=== PATIENT | female | born 1945 | race Caucasian/White ===

== ENCOUNTER 2024-04-24 18:08 | Inpatient (IN) | payer MEDICARE, BC ==
[~2024-04-24] VITALS: Ht 165.1 cm; Wt 74.8 kg
[2024-04-24 19:09] LABS: BASOPHILS # (AUTO) 0.1 K/uL (0.0-0.2); BASOPHILS % (AUTO) 0.4 % (0.0-2.0); EOSINOPHILS # (AUTO) 0.2 K/uL (0.0-0.7); HEMATOCRIT 36 % (33-45); MEAN CORPUSCULAR HEMOGLOBIN 30 PG (26.0-33.0); MEAN CORPUSCULAR HGB CONC 33 g/dl (31.0-36.0); MEAN CORPUSCULAR VOLUME 92 fL (82-100); MONOCYTES % (AUTO) 5.7 % (2.0-12.0); NEUTROPHILS # (AUTO) 13.5 K/uL (1.8-8.9); NEUTROPHILS % (AUTO) 75.9 % (43.0-81.0); PLATELET COUNT (AUTO) 247 K/uL (150-450); RED BLOOD CELL COUNT(AUTO) 3.95 MIL/uL (4.0-5.2); RED CELL DISTRIBUTION WIDTH 13.9 % (11.5-15.0); WHITE BLOOD COUNT (AUTO) 17.8 K/uL (4.3-11.0)
[2024-04-24] MEDS ORDERED: oxyCODONE/APAP (5/325 MG) 1 UDTAB TABLET ONE (19:09)
[2024-04-24] MEDS: oxyCODONE/APAP (5/325 MG) 1 UDTAB TABLET PO ONE (19:11)
[2024-04-24 19:23] LABS: INR 0.96 (0.91-1.10); PARTIAL THROMBOPLASTIN TIME 26.1 SEC (24.3-34.3); PROTHROMBIN TIME 9.9 SECS (9.2-11.1)
[2024-04-24 19:27] LABS: CALCIUM, SERUM 9.2 mg/dL (8.5-10.1); CARBON DIOXIDE 22 mmol/L (21-32); CHLORIDE 104 mmol/L (98-107); CREATININE 1.7 mg/dL (0.6-1.3); GLUCOSE 158 mg/dL (74-106); POTASSIUM 4.6 mmol/L (3.5-5.1); SODIUM SERUM 133 mmol/L (136-145); UREA NITROGEN, BLOOD 24 mg/dL (7-18)
[2024-04-24 19:32] LABS: ALANINE AMINOTRANSFERASE 32 U/L (12-78); ALBUMIN 3.3 g/dL (3.4-5.0); ALKALINE PHOSPHATASE 36 U/L (46-116); ASPARTATE AMINOTRANSFERASE 24 U/L (15-37); BILIRUBIN,DIRECT 0.1 mg/dL (0.0-0.2); BILIRUBIN,TOTAL 0.3 mg/dL (0.2-1.0); TOTAL PROTEIN, SERUM 6.5 g/dL (6.4-8.2)
[2024-04-24] MEDS ORDERED: MORPHINE SULFATE INJ 2 MG/ML DISP.SYRIN ONE ×2 (19:51→21:15)
[2024-04-24] MEDS ORDERED: IOHEXOL-300 100 ML VIAL IV ONE (19:54)
[2024-04-24] MEDS: MORPHINE SULFATE INJ 2 MG/ML DISP.SYRIN IV ONE ×2 (19:55→21:19)
[2024-04-24] MEDS ORDERED: ONDANSETRON HCL/PF 4 MG/2 ML VIAL IVP PRN (22:00)
[2024-04-24] MEDS ORDERED: ZOLPIDEM TARTRATE 5 MG TABLET PO PRN (22:00)
[2024-04-24] MEDS ORDERED: Z GUARD REMEDY 4 OZ OINT TP PRN (22:00)
[2024-04-24] MEDS ORDERED: IBUPROFEN 600 MG TABLET PO PRN (22:00)
[2024-04-24] MEDS ORDERED: MAGNESIUM HYDROXIDE 30 ML UDC PO PRN (22:00)
[2024-04-24] MEDS ORDERED: MAG HYDROX/AL HYDROX/SIMETH 30 ML UDC PO PRN (22:00)
[2024-04-24 22:30] VITALS: BP 75/50; TEMP 97.5; O2SAT 100
[2024-04-24] MEDS: IV NS 0.9% 1,000 ML IV ONE (22:55)
[2024-04-25] MEDS: MORPHINE SULFATE INJ 2 MG/ML DISP.SYRIN IV PRN (06:11)
[2024-04-25] MEDS: BLOOD SUGAR DIAGNOSTIC 1 EACH STRIP IN SCH (06:43)
[2024-04-25] MEDS: INSULIN REGULAR, HUMAN 100 UNIT/ML 3 ML VIAL SQ PRN (06:48)
[2024-04-25 07:00] VITALS: BP 97/72; TEMP 98.1; O2SAT 100
[2024-04-25 07:19] LABS: BASOPHILS % (AUTO) 0.1 % (0.0-2.0); EOSINOPHILS % (AUTO) 0.1 % (0.0-6.0); HEMATOCRIT 31 % (33-45); HEMOGLOBIN 10.2 g/dL (11.5-14.8); LYMPHOCYTES # (AUTO) 2.3 K/uL (0.8-4.8); LYMPHOCYTES % (AUTO) 12.7 % (20.0-44.0); MEAN CORPUSCULAR HEMOGLOBIN 31 PG (26.0-33.0); MEAN CORPUSCULAR HGB CONC 33 g/dl (31.0-36.0); MEAN CORPUSCULAR VOLUME 94 fL (82-100); MONOCYTES # (AUTO) 1.2 K/uL (0.1-1.30); MONOCYTES % (AUTO) 6.4 % (2.0-12.0); NEUTROPHILS # (AUTO) 14.9 K/uL (1.8-8.9); NEUTROPHILS % (AUTO) 80.7 % (43.0-81.0); PLATELET COUNT (AUTO) 207 K/uL (150-450); RED BLOOD CELL COUNT(AUTO) 3.26 MIL/uL (4.0-5.2); RED CELL DISTRIBUTION WIDTH 14.4 % (11.5-15.0); WHITE BLOOD COUNT (AUTO) 18.5 K/uL (4.3-11.0)
[2024-04-25 08:11] LABS: CALCIUM, SERUM 8.9 mg/dL (8.5-10.1); CARBON DIOXIDE 23 mmol/L (21-32); CHLORIDE 106 mmol/L (98-107); CREATININE 2.3 mg/dL (0.6-1.3); GLUCOSE 167 mg/dL (74-106); MAGNESIUM 2.8 mg/dL (1.8-2.4); PHOSPHORUS 3.6 mg/dL (2.5-4.9); POTASSIUM 4.6 mmol/L (3.5-5.1); SODIUM SERUM 137 mmol/L (136-145); UREA NITROGEN, BLOOD 30 mg/dL (7-18)
[2024-04-25] MEDS ORDERED: ASPI-1169 PO (08:28)
[2024-04-25] MEDS ORDERED: ALBU8.5H8 IH (08:28)
[2024-04-25] MEDS ORDERED: MONT10TA22 PO (08:28)
[2024-04-25] MEDS ORDERED: BREYNA IH (08:28)
[2024-04-25] MEDS ORDERED: ASCO100058 PO (08:28)
[2024-04-25] MEDS ORDERED: VALS320T16 PO (08:28)
[2024-04-25] MEDS ORDERED: CETI-90 PO (08:28)
[2024-04-25] MEDS ORDERED: MOME17SP BNOSTRILS (08:28)
[2024-04-25] MEDS ORDERED: OMEP20CA15 PO (08:28)
[2024-04-25] MEDS ORDERED: CYAN-24 PO (08:28)
[2024-04-25] MEDS ORDERED: DOCU-141 PO (08:28)
[2024-04-25] MEDS ORDERED: METF-441 PO (08:28)
[2024-04-25] MEDS ORDERED: TROS20TA3 PO (08:28)
[2024-04-25] MEDS ORDERED: UBID100C13 PO (08:28)
[2024-04-25] MEDS ORDERED: BUPR200T2 PO (08:28)
[2024-04-25] MEDS ORDERED: ROSU40TA PO (08:28)
[2024-04-25] MEDS ORDERED: FERR325T23 PO (08:28)
[2024-04-25] MEDS ORDERED: POLY17PO4 PO (08:28)
[2024-04-25] MEDS: PANTOPRAZOLE 40 MG VIAL IV SCH (08:45)
[2024-04-25] MEDS: FENTANYL PF 100MCG/2ML AMPUL IV ONE ×2 (09:30→11:29)
[2024-04-25] MEDS: IV NS 0.9% 1,000 ML IV ONE (10:00)
[2024-04-25 13:00] VITALS: BP 102/43; TEMP 97.9; O2SAT 100
[2024-04-25 13:36] VITALS: O2SAT 100
[2024-04-25 13:47] LABS: HEMOGLOBIN 9.6 g/dL (11.5-14.8)
[2024-04-25] MEDS: HYDROCODONE/APAP 10/325MG TABLET PO PRN (15:22)
[2024-04-25 16:58] LABS: CREATININE, URINE 170.3 MG/DL (30.0-125.0); URINE TOTAL PROTEIN 254.1 mg/dL (0-11.9)
[2024-04-25] MEDS: MOMETASONE FUROATE NASAL SUSP 17 GM BOTTLE SCH (16:59)
[2024-04-25 17:00] VITALS: BP 99/47; TEMP 98; O2SAT 100
[2024-04-25] MEDS: buPROPion SR 100 MG TABLET.ER PO SCH (17:00)
[2024-04-25 17:02] LABS: APPEARANCE,URINE SLIGHTLY CLOUDY (CLEAR); BILIRUBIN,URINE 1+ (NEGATIVE); BLOOD, URINE 2+ Ery/uL (NEGATIVE); COLOR,URINE YELLOW (YELLOW); KETONES,URINE TRACE mg/dL (NEGATIVE); LEUKOCYTE ESTERASE ,URINE 2+ (NEGATIVE); NITRITE, URINE NEGATIVE (NEGATIVE); PROTEIN,URINE 2+ mg/dl (NEGATIVE); UGLUCOSE NEGATIVE (NEGATIVE)
[2024-04-25 17:19] LABS: ADD URINE CULTURE YES; BACTERIA,URINE 3+ /HPF (None Seen); SQUAMOUS EPITHELIAL CELL,UR Few /HPF (None Seen); WBC,URINE TOO NUMEROUS TO COUN /HPF (0-3)
[2024-04-25 17:21] LABS: EOSINOPHIL,URINE None Seen
[2024-04-25 19:47] VITALS: O2SAT 100
[2024-04-25 20:00] VITALS: BP 95/56; TEMP 97.9; O2SAT 100
[2024-04-25 20:26] LABS: HEMOGLOBIN 8.6 g/dL (11.5-14.8)
[2024-04-25] MEDS: ATORVASTATIN 40 MG TABLET PO SCH (21:11)
[2024-04-25] MEDS: MONTELUKAST SODIUM (10MG) 10 MG TABLET PO SCH (21:11)
[2024-04-26] VITALS (7 sets, daily range): BP systolic 95–113; BP diastolic 50–80; TEMP 98.1–99.5; O2SAT 89–100
[2024-04-26 07:55] LABS: BASOPHILS % (AUTO) 0.1 % (0.0-2.0); EOSINOPHILS % (AUTO) 0.1 % (0.0-6.0); HEMATOCRIT 26 % (33-45); HEMOGLOBIN 8.6 g/dL (11.5-14.8); LYMPHOCYTES # (AUTO) 2.9 K/uL (0.8-4.8); LYMPHOCYTES % (AUTO) 14.5 % (20.0-44.0); MEAN CORPUSCULAR HEMOGLOBIN 31 PG (26.0-33.0); MEAN CORPUSCULAR HGB CONC 33 g/dl (31.0-36.0); MEAN CORPUSCULAR VOLUME 94 fL (82-100); MONOCYTES # (AUTO) 1.7 K/uL (0.1-1.30); MONOCYTES % (AUTO) 8.6 % (2.0-12.0); NEUTROPHILS # (AUTO) 15.5 K/uL (1.8-8.9); NEUTROPHILS % (AUTO) 76.7 % (43.0-81.0); PLATELET COUNT (AUTO) 197 K/uL (150-450); RED BLOOD CELL COUNT(AUTO) 2.76 MIL/uL (4.0-5.2); RED CELL DISTRIBUTION WIDTH 14.5 % (11.5-15.0); WHITE BLOOD COUNT (AUTO) 20.3 K/uL (4.3-11.0)
[2024-04-26 08:22] LABS: ALANINE AMINOTRANSFERASE 30 U/L (12-78); ALBUMIN 2.7 g/dL (3.4-5.0); ALKALINE PHOSPHATASE 31 U/L (46-116); ASPARTATE AMINOTRANSFERASE 23 U/L (15-37); BILIRUBIN,TOTAL 0.3 mg/dL (0.2-1.0); CALCIUM, SERUM 8.3 mg/dL (8.5-10.1); CARBON DIOXIDE 22 mmol/L (21-32); CHLORIDE 104 mmol/L (98-107); CREATININE 2.9 mg/dL (0.6-1.3); GLUCOSE 161 mg/dL (74-106); MAGNESIUM 2.9 mg/dL (1.8-2.4); PHOSPHORUS 4.1 mg/dL (2.5-4.9); POTASSIUM 4.6 mmol/L (3.5-5.1); SODIUM SERUM 137 mmol/L (136-145); UREA NITROGEN, BLOOD 41 mg/dL (7-18)
[2024-04-26 08:41] LABS: CREATINE KINASE, TOTAL 212 U/L (26-192)
[2024-04-26] MEDS: DOCUSATE SODIUM 100 MG CAPSULE PO SCH (08:54)
[2024-04-26] MEDS: cetrizine 10 MG TABLET PO SCH (08:54)
[2024-04-26] MEDS: ASCORBIC ACID 500 MG TABLET PO SCH (08:54)
[2024-04-26] MEDS: FERROUS SULFATE (325 MG) 325 MG/TAB TABLET PO SCH (08:54)
[2024-04-26] MEDS: PANTOPRAZOLE 40 MG TABLET.DR PO SCH (09:05)
[2024-04-26] MEDS: PREGABALIN 25 MG CAPSULE PO SCH (11:45)
[2024-04-26] MEDS: LIDOCAINE 5% (PATCH) 1 EA PATCH TP SCH (11:45)
[2024-04-26] MEDS: CEFTRIAXONE 1 G in IV D5W 50 ML IV SCH (12:06)
[2024-04-26] MEDS: PHENAZOPYRIDINE HCL 200 MG TABLET PO SCH (14:31)
[2024-04-27] VITALS: BP 118/66; TEMP 99.4; O2SAT 98
[2024-04-27 04:00] VITALS: BP 115/62; TEMP 98.7; O2SAT 95
[2024-04-27 04:40] VITALS: O2SAT 100
[2024-04-27 08:00] VITALS: BP 120/63; TEMP 97.7; O2SAT 100
[2024-04-27 08:10] LABS: PTH, INTACT 186 pg/mL (15-65)
[2024-04-27 08:29] LABS: BASOPHILS % (AUTO) 0.1 % (0.0-2.0); HEMATOCRIT 24 % (33-45); HEMOGLOBIN 8.1 g/dL (11.5-14.8); LYMPHOCYTES # (AUTO) 2.6 K/uL (0.8-4.8); LYMPHOCYTES % (AUTO) 11.5 % (20.0-44.0); MEAN CORPUSCULAR HEMOGLOBIN 31 PG (26.0-33.0); MEAN CORPUSCULAR HGB CONC 33 g/dl (31.0-36.0); MEAN CORPUSCULAR VOLUME 94 fL (82-100); MONOCYTES # (AUTO) 1.4 K/uL (0.1-1.30); MONOCYTES % (AUTO) 6.2 % (2.0-12.0); NEUTROPHILS # (AUTO) 18.5 K/uL (1.8-8.9); NEUTROPHILS % (AUTO) 82.2 % (43.0-81.0); PLATELET COUNT (AUTO) 216 K/uL (150-450); RED BLOOD CELL COUNT(AUTO) 2.59 MIL/uL (4.0-5.2); RED CELL DISTRIBUTION WIDTH 14.4 % (11.5-15.0); WHITE BLOOD COUNT (AUTO) 22.6 K/uL (4.3-11.0)
[2024-04-27 09:00] LABS: CALCIUM, SERUM 8.2 mg/dL (8.5-10.1); CARBON DIOXIDE 24 mmol/L (21-32); CHLORIDE 102 mmol/L (98-107); CREATININE 2.8 mg/dL (0.6-1.3); GLUCOSE 168 mg/dL (74-106); MAGNESIUM 2.9 mg/dL (1.8-2.4); POTASSIUM 4.5 mmol/L (3.5-5.1); SODIUM SERUM 136 mmol/L (136-145); UREA NITROGEN, BLOOD 59 mg/dL (7-18)
[2024-04-27] MEDS ORDERED: DOSE PER PHARMACY (MD SPECIFY MEDICATION) 1 EA IV PRN (12:00)
[2024-04-27] MEDS: MEROPENEM 1 G in IV NS 0.9% 100 ML IV SCH (13:12)
[2024-04-27 16:00] VITALS: BP 117/60; TEMP 98.4; O2SAT 95
[2024-04-27 20:00] VITALS: BP 114/79; TEMP 98.6; O2SAT 98
[2024-04-28] VITALS: BP 125/81; TEMP 98.3; O2SAT 96
[2024-04-28 04:00] VITALS: BP 130/61; TEMP 98.1; O2SAT 95
[2024-04-28 07:10] LABS: BASOPHILS % (AUTO) 0.1 % (0.0-2.0); HEMATOCRIT 24 % (33-45); HEMOGLOBIN 7.9 g/dL (11.5-14.8); LYMPHOCYTES # (AUTO) 2.4 K/uL (0.8-4.8); LYMPHOCYTES % (AUTO) 8.9 % (20.0-44.0); MEAN CORPUSCULAR HEMOGLOBIN 31 PG (26.0-33.0); MEAN CORPUSCULAR HGB CONC 33 g/dl (31.0-36.0); MEAN CORPUSCULAR VOLUME 96 fL (82-100); MONOCYTES # (AUTO) 1.8 K/uL (0.1-1.30); MONOCYTES % (AUTO) 6.6 % (2.0-12.0); NEUTROPHILS # (AUTO) 22.6 K/uL (1.8-8.9); NEUTROPHILS % (AUTO) 84.4 % (43.0-81.0); PLATELET COUNT (AUTO) 283 K/uL (150-450); RED BLOOD CELL COUNT(AUTO) 2.55 MIL/uL (4.0-5.2); RED CELL DISTRIBUTION WIDTH 14.6 % (11.5-15.0); WHITE BLOOD COUNT (AUTO) 26.7 K/uL (4.3-11.0)
[2024-04-28 07:45] LABS: ALANINE AMINOTRANSFERASE 115 U/L (12-78); ALKALINE PHOSPHATASE 46 U/L (46-116); ASPARTATE AMINOTRANSFERASE 153 U/L (15-37); BILIRUBIN,TOTAL 0.4 mg/dL (0.2-1.0); CALCIUM, SERUM 8.1 mg/dL (8.5-10.1); CARBON DIOXIDE 15 mmol/L (21-32); CHLORIDE 101 mmol/L (98-107); CREATININE 3.9 mg/dL (0.6-1.3); GLUCOSE 164 mg/dL (74-106); MAGNESIUM 3.1 mg/dL (1.8-2.4); POTASSIUM 4.7 mmol/L (3.5-5.1); SODIUM SERUM 134 mmol/L (136-145); TOTAL PROTEIN, SERUM 5.8 g/dL (6.4-8.2)
[2024-04-28 07:47] LABS: UREA NITROGEN, BLOOD 91 mg/dL (7-18)
[2024-04-28 07:48] LABS: BILIRUBIN,DIRECT 0.1 mg/dL (0.0-0.2); BILIRUBIN,TOTAL 0.4 mg/dL (0.2-1.0); MAGNESIUM 3.3 mg/dL (1.8-2.4); PHOSPHORUS 5.5 mg/dL (2.5-4.9); TOTAL PROTEIN, SERUM 5.8 g/dL (6.4-8.2)
[2024-04-28 08:00] VITALS: BP 109/68; TEMP 96.9; O2SAT 95
[2024-04-28] MEDS: BISACODYL SUPP (10 MG) 10 MG/SUPP.RECT SUPP.RECT RC STA (10:43)
[2024-04-28] MEDS: POLYETHYLENE GLYCOL 3350 17 GM POWD.PACK PO SCH (10:44)
[2024-04-28] MEDS: IV NS 0.9% 1,000 ML IV SCH (10:52)
[2024-04-28 15:45] LABS: CREATININE, URINE 97.1 MG/DL (30.0-125.0)
[2024-04-28 17:06] LABS: APPEARANCE,URINE CLOUDY (CLEAR); BILIRUBIN,URINE 1+ (NEGATIVE); BLOOD, URINE 3+ Ery/uL (NEGATIVE); KETONES,URINE TRACE mg/dL (NEGATIVE); LEUKOCYTE ESTERASE ,URINE 3+ (NEGATIVE); NITRITE, URINE POSITIVE (NEGATIVE); PH,URINE 7.5 (5.0-8.0); PROTEIN,URINE 3+ mg/dl (NEGATIVE); UGLUCOSE TRACE mg/dL (NEGATIVE)
[2024-04-28] MEDS: VANCOMYCIN HCL 1.25 GM in IV D5W 250 ML IV ONE (17:07)
[2024-04-28 17:10] LABS: COLOR,URINE ORANGE (YELLOW)
[2024-04-28 17:46] VITALS: O2SAT 100
[2024-04-28 18:00] VITALS: BP 112/54; TEMP 97.5; O2SAT 95
[2024-04-28 19:04] LABS: ADD URINE CULTURE YES; BACTERIA,URINE 4+ /HPF (None Seen); RBC,URINE 51-80 /HPF (0-2); WBC,URINE 51-80 /HPF (0-3)
[2024-04-28 19:05] LABS: MUCUS,URINE Moderate /LPF (None Seen); SQUAMOUS EPITHELIAL CELL,UR 0-2 /HPF (None Seen)
[2024-04-28 19:08] LABS: EOSINOPHIL,URINE None Seen
[2024-04-28 20:00] VITALS: BP 114/51; TEMP 97.3; O2SAT 94
[2024-04-28] MEDS: MEROPENEM 500 MG in IV NS 0.9% 50 ML IV SCH (20:56)
[2024-04-28] MEDS: NA PHOS,M-B/NA PHOS,DI-BA 1 EA ENEMA RC PRN (20:58)
[2024-04-29] VITALS (29 sets, daily range): BP systolic 65–118; BP diastolic 19–89; TEMP 97.6–98.3; O2SAT 90–100
[2024-04-29] MEDS ORDERED: IV NS 0.9% 1,000 ML IV PRN (07:44)
[2024-04-29 08:16] LABS: BASOPHILS # (AUTO) 0.1 K/uL (0.0-0.2); BASOPHILS % (AUTO) 0.4 % (0.0-2.0); EOSINOPHILS % (AUTO) 0.1 % (0.0-6.0); HEMATOCRIT 22 % (33-45); HEMOGLOBIN 7.3 g/dL (11.5-14.8); LYMPHOCYTES # (AUTO) 2.3 K/uL (0.8-4.8); LYMPHOCYTES % (AUTO) 9.1 % (20.0-44.0); MEAN CORPUSCULAR HEMOGLOBIN 33 PG (26.0-33.0); MEAN CORPUSCULAR HGB CONC 34 g/dl (31.0-36.0); MEAN CORPUSCULAR VOLUME 99 fL (82-100); MONOCYTES # (AUTO) 1.5 K/uL (0.1-1.30); MONOCYTES % (AUTO) 6.2 % (2.0-12.0); NEUTROPHILS % (AUTO) 84.2 % (43.0-81.0); PLATELET COUNT (AUTO) 300 K/uL (150-450); RED BLOOD CELL COUNT(AUTO) 2.21 MIL/uL (4.0-5.2); RED CELL DISTRIBUTION WIDTH 15.3 % (11.5-15.0); WHITE BLOOD COUNT (AUTO) 24.9 K/uL (4.3-11.0)
[2024-04-29 09:18] LABS: ALANINE AMINOTRANSFERASE 203 U/L (12-78); ALBUMIN 1.8 g/dL (3.4-5.0); ALKALINE PHOSPHATASE 68 U/L (46-116); ASPARTATE AMINOTRANSFERASE 227 U/L (15-37); BILIRUBIN,TOTAL 0.5 mg/dL (0.2-1.0); CALCIUM, SERUM 7.2 mg/dL (8.5-10.1); CARBON DIOXIDE 13 mmol/L (21-32); CHLORIDE 101 mmol/L (98-107); CREATININE 4.7 mg/dL (0.6-1.3); GLUCOSE 137 mg/dL (74-106); MAGNESIUM 3.4 mg/dL (1.8-2.4); POTASSIUM 5.2 mmol/L (3.5-5.1); SODIUM SERUM 136 mmol/L (136-145); TOTAL PROTEIN, SERUM 5.5 g/dL (6.4-8.2)
[2024-04-29 09:24] LABS: UREA NITROGEN, BLOOD 123 mg/dL (7-18)
[2024-04-29] MEDS: ALBUTEROL HALF STRENGTH 1.25 MG/3 ML VIAL.NEB NEB SCH (09:55)
[2024-04-29] MEDS: IPRATROPIUM NEB FS 0.5 MG/2.5 ML AMPUL.NEB NEB SCH (09:55)
[2024-04-29] MEDS: FUROSEMIDE 40 MG/4 ML VIAL IV ONE (10:59)
[2024-04-29 13:42] LABS: BAND % (MANUAL) 2 % (0.0-5.0); LYMPHOCYTES % (MANUAL) 10 % (16-48); METAMYELOCYTES % 1 % (0-0); MONOCYTES % (MANUAL) 3 % (0-11.0); NEUTROPHILS % (MANUAL) 84 (42-76); PLATELET ESTIMATE ADEQUATE
[2024-04-29 14:00] LABS: ERYTHROCYTE SEDIMENTATION RATE 33 MM/HR (0-30)
[2024-04-29] MEDS: ACETAMINOPHEN 325 MG TABLET PO PRN (17:36)
[2024-04-29 19:45] LABS: ABG PCO2 30.8 mmHg (35.0-45.0); ABG PH 7.174 (7.350-7.450); ABG PO2 263.9 mmHg (75.0-100.0); ABG TOTAL HEMOGLOBIN 8.4 G/dL (12.0-16.0); AaDO2 418.3 mmHg; COHb 0.3 % (0.5-1.5); MetHb 0.2 % (0.0-1.5); O2Hb 98.5 % (94.0-97.0); SITE, ABG Right Radial; VENT MODE, BG NON REBREATHER
[2024-04-29] MEDS: NOREPINEPHRINE 8MG/250ML RTU 250 ML IV ONE (20:28)
[2024-04-29] MEDS: NOREPINEPHRINE 8 MG in IV D5W 242 ML IV PRN (20:41)
[2024-04-29] MEDS: PROPOFOL 100 ML IV PRN (20:54)
[2024-04-29 21:44] LABS: BASOPHILS # (AUTO) 0.2 K/uL (0.0-0.2); BASOPHILS % (AUTO) 0.6 % (0.0-2.0); EOSINOPHILS # (AUTO) 0.3 K/uL (0.0-0.7); HEMATOCRIT 24 % (33-45); HEMOGLOBIN 7.6 g/dL (11.5-14.8); LYMPHOCYTES # (AUTO) 5.9 K/uL (0.8-4.8); LYMPHOCYTES % (AUTO) 17.7 % (20.0-44.0); MEAN CORPUSCULAR HEMOGLOBIN 31 PG (26.0-33.0); MEAN CORPUSCULAR HGB CONC 31 g/dl (31.0-36.0); MEAN CORPUSCULAR VOLUME 101 fL (82-100); MONOCYTES # (AUTO) 1.6 K/uL (0.1-1.30); MONOCYTES % (AUTO) 4.7 % (2.0-12.0); NEUTROPHILS # (AUTO) 25.3 K/uL (1.8-8.9); PLATELET COUNT (AUTO) 304 K/uL (150-450); RED BLOOD CELL COUNT(AUTO) 2.41 MIL/uL (4.0-5.2); RED CELL DISTRIBUTION WIDTH 15.4 % (11.5-15.0)
[2024-04-29 21:47] LABS: CALCIUM, SERUM 6.8 mg/dL (8.5-10.1); CARBON DIOXIDE 15 mmol/L (21-32); CHLORIDE 99 mmol/L (98-107); CREATININE 3.9 mg/dL (0.6-1.3); GLUCOSE 106 mg/dL (74-106); POTASSIUM 4.8 mmol/L (3.5-5.1); SODIUM SERUM 138 mmol/L (136-145); UREA NITROGEN, BLOOD 77 mg/dL (7-18)
[2024-04-29 21:48] LABS: WHITE BLOOD COUNT (AUTO) 33.2 K/uL (4.3-11.0)
[2024-04-29 21:50] LABS: INR 1.18 (0.91-1.10); PARTIAL THROMBOPLASTIN TIME 32.5 SEC (24.3-34.3); PROTHROMBIN TIME 12.4 SECS (9.2-11.1)
[2024-04-29] MEDS: IV NS 0.9% 500 ML IV ONE (21:59)
[2024-04-29 22:02] LABS: ALANINE AMINOTRANSFERASE 337 U/L (12-78); ALBUMIN 1.7 g/dL (3.4-5.0); ALKALINE PHOSPHATASE 81 U/L (46-116); ASPARTATE AMINOTRANSFERASE 451 U/L (15-37); BILIRUBIN,TOTAL 0.7 mg/dL (0.2-1.0); TOTAL PROTEIN, SERUM 5.8 g/dL (6.4-8.2)
[2024-04-29 22:03] LABS: ABG BASE EXCESS -16.7 mmol/L (-2.0-2.0); ABG OXYGEN SATURATION 99.4 % (92.0-98.5); ABG PCO2 34.2 mmHg (35.0-45.0); ABG PH 7.132 (7.350-7.450); ABG PO2 366.1 mmHg (75.0-100.0); ABG TOTAL HEMOGLOBIN 8.2 G/dL (12.0-16.0); AaDO2 312.7 mmHg; COHb 0.2 % (0.5-1.5); MetHb 0.5 % (0.0-1.5); O2Hb 98.7 % (94.0-97.0); PEEP,BG 5 cm H2O; SITE, ABG Right Radial; VT, ABG 500 mL
[2024-04-29] MEDS: SODIUM BICARBONATE SYR 50 MEQ/50 ML DISP.SYRIN IV ONE (23:02)
[2024-04-29 23:11] LABS: BAND % (MANUAL) 3 % (0.0-5.0); LYMPHOCYTES % (MANUAL) 18 % (16-48); METAMYELOCYTES % 2 % (0-0); MONOCYTES % (MANUAL) 7 % (0-11.0); MYELOCYTES % 3 % (0-0); NEUTROPHILS % (MANUAL) 67 (42-76)
[2024-04-29 23:13] LABS: PLATELET ESTIMATE ADEQUATE
[2024-04-29 23:14] LABS: ANISOCYTOSIS 2+
[2024-04-29] MEDS ORDERED: Sodium Bicarbonate 150 MEQ in IV D5W 1,000 ML IV SCH (23:30)
[2024-04-29] MEDS: SODIUM BICARBONATE SYR 50 MEQ/50 ML DISP.SYRIN ONE ×2 (23:49)
[2024-04-29] MEDS: Sodium Bicarbonate 150 MEQ in IV D5W 1,000 ML IV PRN (23:55)
[2024-04-30] VITALS (98 sets, daily range): BP systolic 40–173; BP diastolic 11–108; TEMP 96–98.6; O2SAT 94–97
[2024-04-30] MEDS: VANCOMYCIN POST DIALYSIS 500MG IV PRN (00:08)
[2024-04-30] MEDS: HEPARIN SODIUM, PORCINE 5000 UNITS/1 ML VIAL SQ SCH (00:49)
[2024-04-30 05:07] LABS: *SPE A/G RATIO 1.2 (0.7-1.7); *SPE ALPHA-1-GLOBULIN 0.4 g/dL (0.0-0.4); *SPE ALPHA-2-GLOBULIN 0.8 g/dL (0.4-1.0); *SPE BETA GLOBULIN 0.7 g/dL (0.7-1.3); *SPE GLOBULIN, TOTAL 2.6 g/dL (2.2-3.9); *SPE M-SPIKE Not Observed g/dL (Not Observed); *SPE PROTEIN TOTAL 5.6 g/dL (6.0-8.5); *SPEGAMMA GLOBULIN 0.7 g/dL (0.4-1.8)
[2024-04-30] MEDS ORDERED: MAGNESIUM HYDROXIDE 30 ML UDC GT PRN (06:58)
[2024-04-30] MEDS ORDERED: MAG HYDROX/AL HYDROX/SIMETH 30 ML UDC GT PRN (06:58)
[2024-04-30] MEDS ORDERED: ACETAMINOPHEN 650 MG/20.3 ML UDC GT PRN (07:00)
[2024-04-30] MEDS ORDERED: PROPOFOL 200 MG/20 ML VIAL IV ONE (07:29)
[2024-04-30] MEDS ORDERED: PHENYLEPHRINE 100 MG in IV NS 0.9% 240 ML IV PRN (08:00)
[2024-04-30] MEDS ORDERED: NEPRO 1,000 ML BOTTLE GT PRN (08:30)
[2024-04-30] MEDS ORDERED: EPINEPHRINE (1:10,000) SYRINGE 1 MG/10 ML DISP.SYRIN IVP ONE (08:37)
[2024-04-30] MEDS: PANTOPRAZOLE 40 MG VIAL IV SCH (09:00)
[2024-04-30] MEDS: PREGABALIN 25 MG CAPSULE GT SCH ×2 (09:00→21:00)
[2024-04-30] MEDS: cetrizine 10 MG TABLET GT SCH (09:00)
[2024-04-30] MEDS: FERROUS SULFATE UDC 300 MG/5 ML UDC GT SCH (09:00)
[2024-04-30] MEDS: ASCORBIC ACID 500 MG TABLET GT SCH (09:00)
[2024-04-30] MEDS: DOCUSATE SODIUM LIQ 100 MG/10 ML UDC GT SCH (09:00)
[2024-04-30] MEDS: PHENYLEPHRINE 100 MG in IV NS 0.9% 240 ML IV PRN ×2 (09:10→10:00)
[2024-04-30] MEDS: SODIUM BICARBONATE SYR 50 MEQ/50 ML DISP.SYRIN ONE (09:27)
[2024-04-30] MEDS ORDERED: SODIUM BICARBONATE SYR 50 MEQ/50 ML DISP.SYRIN IV ONE (09:30)
[2024-04-30] MEDS: NOREPINEPHRINE 32 MG in IV NS 0.9% 218 ML IV PRN (10:05)
[2024-04-30] MEDS: IV NS 0.9% 500 ML BAG IV ONE (10:43)
[2024-04-30] MEDS: VASOPRESSIN INJ 40 UNIT in IV NS 0.9% 38 ML IV PRN (10:55)
[2024-04-30] MEDS: HYDROCORTISONE SOD SUCCINATE 100 MG/2 ML VIAL IV SCH (11:48)
[2024-04-30] MEDS: DEXTROSE 50%-WATER 50 ML DISP.SYRIN IVP ONE (13:02)
[2024-04-30] MEDS: BLOOD SUGAR DIAGNOSTIC 1 EACH STRIP IN SCH (13:02)
[2024-04-30] MEDS ORDERED: ALBUMIN 5% 12.5 GM in PREMIX 1 EA IV ONE (13:30)
[2024-04-30] MEDS ORDERED: ALBUMIN 25% 25 GM in PREMIX 1 EA IV PRN (13:30)
[2024-04-30] MEDS: EPINEPHRINE (1:1000) 10 MG in IV NS 0.9% 240 ML IV PRN (13:30)
[2024-04-30] MEDS: SODIUM BICARBONATE SYR 50 MEQ/50 ML DISP.SYRIN IV ONE (13:30)
[2024-04-30] MEDS: PHENYLEPHRINE 10 MG/ML VIAL IV ONE (13:30)
[2024-04-30] MEDS: PHENYLEPHRINE 10 MG/ML VIAL ONE (13:31)
[2024-04-30 13:37] LABS: BASOPHILS # (AUTO) 0.1 K/uL (0.0-0.2); BASOPHILS % (AUTO) 0.3 % (0.0-2.0); EOSINOPHILS % (AUTO) 0.1 % (0.0-6.0); LYMPHOCYTES # (AUTO) 4.6 K/uL (0.8-4.8); LYMPHOCYTES % (AUTO) 26.6 % (20.0-44.0); MEAN CORPUSCULAR HEMOGLOBIN 31 PG (26.0-33.0); MEAN CORPUSCULAR HGB CONC 32 g/dl (31.0-36.0); MEAN CORPUSCULAR VOLUME 98 fL (82-100); MONOCYTES # (AUTO) 0.6 K/uL (0.1-1.30); MONOCYTES % (AUTO) 3.1 % (2.0-12.0); NEUTROPHILS # (AUTO) 12.2 K/uL (1.8-8.9); NEUTROPHILS % (AUTO) 69.9 % (43.0-81.0); PLATELET COUNT (AUTO) 213 K/uL (150-450); RED BLOOD CELL COUNT(AUTO) 1.89 MIL/uL (4.0-5.2); RED CELL DISTRIBUTION WIDTH 14.5 % (11.5-15.0); WHITE BLOOD COUNT (AUTO) 17.5 K/uL (4.3-11.0)
[2024-04-30 13:38] LABS: HEMATOCRIT 19 % (33-45); HEMOGLOBIN 5.9 g/dL (11.5-14.8)
[2024-04-30 13:46] LABS: ALKALINE PHOSPHATASE 128 U/L (46-116); CARBON DIOXIDE 22 mmol/L (21-32); CHLORIDE 99 mmol/L (98-107); CREATININE 2.7 mg/dL (0.6-1.3); GLUCOSE 115 mg/dL (74-106); MAGNESIUM 2.3 mg/dL (1.8-2.4); POTASSIUM 4.6 mmol/L (3.5-5.1); SODIUM SERUM 139 mmol/L (136-145); TOTAL PROTEIN, SERUM 3.8 g/dL (6.4-8.2); UREA NITROGEN, BLOOD 53 mg/dL (7-18); VANCOMYCIN,RANDOM 11 ug/mL (20-30)
[2024-04-30] MEDS: Sodium Bicarbonate 150 MEQ in IV D5W 1,000 ML IV SCH (14:00)
[2024-04-30 14:23] LABS: ALANINE AMINOTRANSFERASE 1920 U/L (12-78); ASPARTATE AMINOTRANSFERASE > 1000 U/L (15-37)
[2024-04-30 14:26] LABS: ALBUMIN 1.1 g/dL (3.4-5.0); PHOSPHORUS 8.1 mg/dL (2.5-4.9)
[2024-04-30 14:29] LABS: LACTIC ACID 12.3 mmol/L (0.4-2.0)
[2024-04-30] MEDS ORDERED: MANNITOL 12.5 GM/50 ML VIAL IV SCH (14:30)
[2024-04-30] MEDS: IV Sodium Chloride 3% 500 ML 500 ML IV ONE (14:30)
[2024-04-30] MEDS: dexaMETHasone SOD PHOSPHATE 10 MG/ML VIAL IV STA (14:32)
[2024-04-30] MEDS: DEXTROSE 50%-WATER 50 ML DISP.SYRIN IV PRN (14:36)
[2024-04-30] MEDS: MANNITOL 25 GM in IV D5W 50 ML IV SCH (15:14)
[2024-04-30 16:05] LABS: BAND % (MANUAL) 11 % (0.0-5.0); LYMPHOCYTES % (MANUAL) 32 % (16-48); METAMYELOCYTES % 2 % (0-0); MONOCYTES % (MANUAL) 6 % (0-11.0); NEUTROPHILS % (MANUAL) 44 (42-76)
[2024-04-30 16:06] LABS: EOSINOPHILS % (MANUAL) 0 % (0-4); HYPOCHROMASIA 1+; MYELOCYTES % 5 % (0-0); PLATELET ESTIMATE ADEQUATE
[2024-04-30] MEDS: buPROPion 100 MG TABLET NG SCH (17:24)
[2024-04-30 17:30] LABS: BILIRUBIN,DIRECT 1.1 mg/dL (0.0-0.2)
[2024-04-30 17:49] LABS: LACTIC ACID REFLEX 20.1 mmol/L (0.4-1.9)
[2024-04-30] MEDS: MANNITOL 20% IV SCH (20:25)
[2024-04-30] MEDS ORDERED: DEXTROSE 50%-WATER 50 ML DISP.SYRIN IV ONE (20:51)
[2024-04-30] MEDS ORDERED: MOMETASONE FUROATE NASAL SUSP 17 GM BOTTLE SCH (21:00)
[2024-04-30] MEDS ORDERED: buPROPion SR 100 MG TABLET.ER PO SCH (21:00)
[2024-04-30] MEDS: POLYETHYLENE GLYCOL 3350 17 GM POWD.PACK GT SCH (21:19)
[2024-04-30] MEDS: ATORVASTATIN 40 MG TABLET GT SCH (21:19)
[2024-04-30] MEDS: MONTELUKAST SODIUM (10MG) 10 MG TABLET GT SCH (21:19)
[2024-05-01] VITALS (13 sets, daily range): BP systolic 42–144; BP diastolic 21–87; TEMP 96.3
[2024-05-01] MEDS ORDERED: EPINEPHRINE (1:10,000) SYRINGE 1 MG/10 ML DISP.SYRIN IVP ONE (02:37)
[2024-05-01 05:08] LABS: HEPATITIS B SURFACE AB Non Reactive (.)
[2024-05-01] MEDS ORDERED: CALCIUM CHLORIDE 1,000 MG/10 ML DISP.SYRIN IV ONE (06:11)
[2024-05-01 08:11] LABS: *ANA ANTI-CENTROMERE B AB <0.2 AI (0.0-0.9); *ANA ANTI-DNA(DS) AB, QN <1 IU/mL (0-9); *ANA ANTI-JO-1 <0.2 AI (0.0-0.9); *ANA ANTICHROMATIN ANTIBODY <0.2 AI (0.0-0.9); *ANA RNP ANTIBODIES <0.2 AI (0.0-0.9); *ANA SJOGREN'S ANTI-SS-A <0.2 AI (0.0-0.9); *ANA SJOGREN'S ANTI-SS-B <0.2 AI (0.0-0.9); *ANAANTI-SCLERODERMA-70 AB <0.2 AI (0.0-0.9); *ANASMITH AB <0.2 AI (0.0-0.9); COMPLEMENT C3, SERUM 126 mg/dL (82-167); COMPLEMENT C4, SERUM 43 mg/dL (12-38)
[2024-05-01] MEDS ORDERED: VANCOMYCIN 1 GM in IV D5W 250ml IV SCH (16:00)
== END 2024-05-01 06:12 | DRG 871 ==
LOC: ER 18:11 → TELE 22:15 → MED 23:07 → TELE-TD 04-25 10:48 → TELE1 04-26 13:31 → ICU 04-29 20:36
PROVIDERS: ATTEND Nurse Practitioner Family
PROC: 5A1945Z Respiratory Ventilation, 24-96 Consecutive Hours (ICD-10-PCS; principal; 2024-04-29)
PROC: 5A1D70Z Performance of Urinary Filtration, Intermittent, Less than 6 Hours Per Day (ICD-10-PCS; 2024-04-29)
PROC: 0BH17EZ Insertion of Endotracheal Airway into Trachea, Via Natural or Artificial Opening (ICD-10-PCS; 2024-04-29)
PROC: 02HV33Z Insertion of Infusion Device into Superior Vena Cava, Percutaneous Approach (ICD-10-PCS; 2024-04-29)
PROC: B548ZZA Ultrasonography of Superior Vena Cava, Guidance (ICD-10-PCS; 2024-04-29)
PROC: 5A12012 Performance of Cardiac Output, Single, Manual (ICD-10-PCS; 2024-04-29)
PROC: 06HM33Z Insertion of Infusion Device into Right Femoral Vein, Percutaneous Approach (ICD-10-PCS; 2024-04-30)
PROC: B54BZZA Ultrasonography of Right Lower Extremity Veins, Guidance (ICD-10-PCS; 2024-04-30)
PROC: 30233N1 Transfusion of Nonautologous Red Blood Cells into Peripheral Vein, Percutaneous Approach (ICD-10-PCS; 2024-04-30)
DX: A41.9 Sepsis, unspecified organism (principal); J18.9 Pneumonia, unspecified organism; N17.0 Acute kidney failure with tubular necrosis; R65.21 Severe sepsis with septic shock; S22.41XA Multiple fractures of ribs, right side, initial encounter for closed fracture; E44.1 Mild protein-calorie malnutrition; E87.1 Hypo-osmolality and hyponatremia; N39.0 Urinary tract infection, site not specified; E87.20 Acidosis, unspecified; G93.1 Anoxic brain damage, not elsewhere classified; J45.901 Unspecified asthma with (acute) exacerbation; J98.11 Atelectasis; K55.9 Vascular disorder of intestine, unspecified; V47.5XXA Car driver injured in collision with fixed or stationary object in traffic accident, initial encounter; Y92.410 Unspecified street and highway as the place of occurrence of the external cause; I12.9 Hypertensive chronic kidney disease with stage 1 through stage 4 chronic kidney disease, or unspecified chronic kidney disease; E11.22 Type 2 diabetes mellitus with diabetic chronic kidney disease; N18.32 Chronic kidney disease, stage 3b; D64.9 Anemia, unspecified; E66.9 Obesity, unspecified; E78.5 Hyperlipidemia, unspecified; E86.1 Hypovolemia; E87.5 Hyperkalemia; F41.9 Anxiety disorder, unspecified; I48.91 Unspecified atrial fibrillation; J98.4 Other disorders of lung; K59.00 Constipation, unspecified; M89.8X9 Other specified disorders of bone, unspecified site; E88.09 Other disorders of plasma-protein metabolism, not elsewhere classified; Z68.27 Body mass index [BMI] 27.0-27.9, adult; S20.211A Contusion of right front wall of thorax, initial encounter; Y93.9 Activity, unspecified; B96.1 Klebsiella pneumoniae [K. pneumoniae] as the cause of diseases classified elsewhere; K57.30 Diverticulosis of large intestine without perforation or abscess without bleeding; K76.0 Fatty (change of) liver, not elsewhere classified
CPT/HCPCS: 31720; 36415; 36600; 70450-TC; 71045-TC; 71260-TC; 72125-TC; 74018; 76700-TC; 76770-TC; 80048-TC; 80053-TC; 80076-TC; 80202-TC; 81001; 82248-TC; 82533; 82550-TC; 82570-TC; 82803-TC; 82962-TC; 83605-TC; 83615-TC; 83690-TC; 83735-TC; 83935-TC; 83970; 84100-TC; 84155; 84165; 84300-TC; 84443-TC; 84484-TC; 85025-TC; 85027-TC; 85652-TC; 85730-TC; 86225; 86235; 86706; 86803; 86850-TC; 87040-TC; 87086-TC; 87340; 90935-TC; 92526; 92611-TC; 92950-TC; 93307-TC; 94002-TC; 94003-TC; 94760-TC; 94762-TC; 94799-TC; 97110-TC; 97112-TC; 97530-TC; 99082-TC; A4216; A4223; C1751; G0378; J0171; J0696; J1100; J1644; J1720; J1815; J1940; J2150; J2185; J2270; J2470; J2704; J3010; J3370; J3475; J3490; J7030; J7040; J7050; J7060; J7070; P9016; P9047; Q9967